=== PATIENT | female | born 1945 | race Caucasian/White ===

== ENCOUNTER 2016-09-13 02:19 | Inpatient (IN) ==
[2016-09-07 13:02] LABS: MANUAL DIFF NEEDED? NO; URINE MICRO REVIEW NEEDED? NO; URINE SOURCE CLEAN CATCH
[2016-09-07 13:14] LABS: BILIRUBIN URINE NEGATIVE (NEGATIVE); BLOOD URINE NEGATIVE (NEGATIVE); COLOR YELLOW; GLUCOSE URINE NEGATIVE (NEGATIVE); LEUKOCYTES URINE TRACE (NEGATIVE); NITRITE URINE NEGATIVE (NEGATIVE); PROTEIN URINE TRACE mg/dL (NEGATIVE); SP GRAVITY URINE 1.017; TURBIDITY URINE CLEAR (CLEAR); UROBILINOGEN URINE NORMAL (NORMAL)
[2016-09-07 13:16] LABS: BASO% 0.4 % (0.0-0.8); EOS# 0.32 X1000 (0.0-0.7); HEMATOCRIT 40.3 % (37.0-47.0); LYMPH# 2.41 X1000 (1.2-3.4); LYMPH% 30.2 % (20.5-51.1); MCH 29.7 PG (27-31); MCHC 32.3 g/dL (33-37); MCV 92.2 FL (81-99); MONO# 0.67 X1000 (0.11-0.59); MONO% 8.4 % (1.7-9.3); MPV 10.3 FL (7.4-10.4); PLT 183 X1000 (130-400); RBC 4.37 XMIL (4.2-5.4); UR EPITHELIAL CELLS <10 /HPF (<10); URINE BACTERIA NEGATIVE /HPF; URINE RBC <10 /HPF (<10); URINE WBC <10 /HPF (<10)
[2016-09-07 13:37] LABS: AGAP 11; BUN 15 mg/dL (8-22); CALCIUM 9.3 mg/dL (8.8-10.2); CHLORIDE 98 mmol/L (98-107); COSMO 289; POTASSIUM 3.9 mmol/L (3.5-5.1); SODIUM 144 mmol/L (136-145); TCO2 35 mmol/L (25-35)
[2016-09-07 13:43] LABS: PROTIME 10.2 Seconds (9.2-11.7); PTT 24.7 Seconds (22.0-36.0)
--- NOTE | 2016-09-07 14:24 | EKG Report ---
Test Performed on : 09/07/2016 12:56:04 PM Test Reason : PAT Blood Pressure : / mmHG Vent. Rate : 060 BPM Atrial Rate : 060 BPM P-R Int : 164 ms QRS Dur : 108 ms QT Int : 454 ms P-R-T Axes : 050 -24 024 degrees QTc Int : 454 ms Normal sinus rhythm. Incomplete right bundle branch block Moderate voltage criteria for LVH, may be normal variant Cannot rule out Septal infarct , age undetermined Abnormal ECG When compared with ECG of 11-DEC-2010 16:43, Minimal criteria for Septal infarct are now present Confirmed by Meliton JOEL, Jesus Simpson ([id number]) on 09/08/2016 9:29:12 AM
[2016-09-13] MEDS ORDERED: FLEXERIL PO PRN (07:01)
[2016-09-13] MEDS ORDERED: MINOCIN PO PRN (07:01)
[2016-09-13] MEDS ORDERED: COLACE ONE (07:37)
[2016-09-13] MEDS ORDERED: LYRICA ONE (07:37)
[2016-09-13] MEDS ORDERED: REGLAN ONE (07:37)
[2016-09-13] MEDS ORDERED: PEPCID ONE (07:37)
[2016-09-13] MEDS ORDERED: CELEBREX ONE (07:38)
[2016-09-13] MEDS ORDERED: LR 1,000 ML ONE ×2 (07:38)
[2016-09-13] MEDS ORDERED: KEFZOL 1 GM/D5W 50 ML ONE (07:38)
[2016-09-13] MEDS ORDERED: SODIUM CHLORIDE 0.9% ONE (08:56)
[2016-09-13] MEDS ORDERED: VANCOMYCIN ONE (08:56)
[2016-09-13] MEDS ORDERED: MARCAINE 0.25% PF/EPI 1:200,000 ONE (08:56)
[2016-09-13] MEDS ORDERED: DURAMORPH ONE (08:56)
[2016-09-13] MEDS ORDERED: TORADOL ONE (08:56)
[2016-09-13] MEDS ORDERED: CYKLOKAPRON 1,000 MG/NS 100 ML ONE ×2 (08:57→10:39)
[2016-09-13] MEDS ORDERED: CLAVE SECONDARY SET 11953 ONE (08:57)
[2016-09-13] MEDS ORDERED: EXPAREL 1.3% ONE (08:57)
[2016-09-13] MEDS ORDERED: NEOSPORIN G.U. IRRIGANT ONE (08:57)
[2016-09-13] MEDS ORDERED: METOPROLOL PO SCH (09:00)
[2016-09-13] MEDS ORDERED: NEURONTIN PO SCH ×2 (09:00→21:00)
[2016-09-13] MEDS ORDERED: HYDROCHLOROTHIAZIDE PO SCH (09:00)
[2016-09-13] MEDS ORDERED: [UNRECOGNIZED DRUG - OTHER] PO SCH (09:00)
--- NOTE | 2016-09-13 09:39 | HISTORY AND PHYSICAL ---
CHIEF COMPLAINT: Right knee pain. HISTORY OF PRESENT ILLNESS: Ms. Rahman is a 70-year-old, white female with a history of right knee pain for several years now. It has progressively gotten worse. On radiographic image, it shows that she has advanced degenerative joint disease. She is being admitted to the hospital today for a right total knee arthroplasty. PAST MEDICAL HISTORY: Neuropathy, hypertension, mitral valve prolapse, hyperlipidemia, ulcerative colitis, and osteoarthritis. SURGICAL HISTORY: Bilateral tubal ligation, total vaginal hysterectomy, breast reduction, lumbar fusion, laminectomy, anterior cervical disk fusion, cataract surgery, mandible surgery. FAMILY HISTORY: Noncontributory. SOCIAL HISTORY: She is . She denies using tobacco, denies using alcohol. HOME MEDICATION LIST: Wellbutrin 300 mg p.o. daily, Pepcid 40 mg p.o. b.i.d., estradiol 1 mg p.o. daily, Cymbalta 30 mg p.o. daily, Topamax 200 mg p.o. at bedtime, Pravachol 20 mg p.o. at bedtime, Colazal 1500 mg p.o. b.i.d., MS Contin 15 mg p.o. q.12 hours p.r.n., gabapentin 300 mg p.o. b.i.d., magnesium oxide 800 mg p.o. daily, minocycline 50 mg p.o. p.r.n., Flexeril 10 mg p.o. at bedtime, aspirin 81 mg p.o. daily, Aricept 10 mg p.o. at bedtime, MiraLAX 17 g p.o. daily, losartan/hydrochlorothiazide 100/25 mg tablet 1 p.o. daily, metoprolol/hydrochlorothiazide 100/25 mg tablet 1 p.o. b.i.d., Linzess 145 mcg p.o. daily, oxycodone/acetaminophen 10/325 one p.o. q.8 hours p.r.n., Centrum Silver 1 p.o. daily, gabapentin 300 mg capsule 2 capsules p.o. at bedtime. ALLERGIES: No known drug allergies. PRIMARY CARE PROVIDER: Dr. Leida Carrizales. REVIEW OF SYSTEMS: HEENT: Reading glasses. She has had cataract surgery in the past. Cardiac: Patient reports having mitral valve prolapse but denies any other heart history. Denies any chest pain, shortness of breath, or syncope. Pulmonary: Patient denies any wheezing, coughing, hemoptysis, or any chronic lung disease. Gastrointestinal: Patient reports having ulcerative colitis. Denies any current nausea, vomiting, diarrhea, or constipation. Genitourinary: The patient denies any bladder or urinary tract problems. Neurological: Patient reports having numbness and tingling of her hands and feet. Musculoskeletal: Patient reports right knee pain. PHYSICAL EXAMINATION: GENERAL: The patient is awake, sitting up in bed. She is articulate and able to answer questions appropriately. HEENT: Head is normocephalic, atraumatic. Pupils equal, round, react to light. Nares patent. Throat without any exudate. CARDIAC: S1 and S2 auscultated. No murmur, rub or gallop noted. LUNGS: Clear to auscultation bilaterally in all lung cedeño. ABDOMEN: Soft, nontender, nondistended. Bowel sounds present all quadrants. GENITOURINARY: Not examined. NEUROLOGICAL: The patient has good sensation to dull touch in all extremities. Cranial nerves 2- 12 grossly intact. MUSCULOSKELETAL: Physical examination of the right knee reveals pain with palpation and passive range of motion. IMPRESSION: Osteoarthritis of the right knee. PLAN: Right total knee arthroplasty. The risks, benefits, and alternatives of the surgery were discussed with the patient including the risks of anesthesia, bleeding, damage to blood vessels, nerves, tendons, ligaments, and other imponderables. The patient agrees to proceed with surgery at this time. Dictated by MANSI Pruitt for Casa Álvarez MD
[2016-09-13] MEDS ORDERED: FENTANYL ONE (11:12)
[2016-09-13] MEDS ORDERED: DIPRIVAN 1% 50 ML ONE (11:12)
--- NOTE | 2016-09-13 11:18 | OPERATIVE NOTE ---
PROCEDURE DATE: 09/13/2016 PREOPERATIVE DIAGNOSIS: Degenerative joint disease, right knee. POSTOPERATIVE DIAGNOSIS: Degenerative joint disease, right knee. PROCEDURE PERFORMED: Right total knee replacement. SURGEON: Franny Álvarez MD. CONTACT CENTER ENGINEER: ERIBERTO Caro. ANESTHESIA: Spinal. COMPLICATIONS: None. PROCEDURE IN DETAIL: This 70-year-old female presents for end-stage DJD about the right knee. Risks, benefits, and no guarantees were discussed, and she is willing to proceed. She was taken to the operating room and satisfactory anesthesia obtained. The right knee was prepped and draped in the usual sterile fashion. A time-out was taken to confirm operative site, procedure, and patient. The leg was wrapped with an Esmarch and tourniquet inflated to 350 mmHg. A midline incision was made, followed by a quadriceps tendon sparing arthrotomy. The patella was everted and resurfaced with freehand technique, and sized to a 31 medialized dome patella. The patella was subluxed laterally and the knee flexed. An intramedullary hole was made in the distal femur and the distal femoral cutting block secured in 5 degrees of valgus. Distal femoral resection was then made and the femur sized to a DePuy Attune size 4 femoral component. The 4 in 1 block was secured. The anterior, posterior, and chamfer cuts were sequentially made. Care was taken to preserve the PCL. Any osteophytes were debrided about the femur. The knee was flexed and a PCL retractor placed behind the tibia to protect the PCL and neurovascular bundle. The tibial cutting block was positioned with an extramedullary alignment guide and tibial resection made. Flexion and extension gaps were noted to be slightly tight medially and a medial resection was released with good soft tissue balance. The tibia was sized to a size 3 tibial tray. Trial reduction was performed with a 6 mm poly with good range of motion and stability of the knee and patella. The trial implants were removed. The bony surfaces were thoroughly irrigated with pulsatile lavage. Cement with a gram of vancomycin was then utilized to cement a DePuy Attune size 3 tibial tray, a size 4 right cruciate-retaining femoral component, and a 32 medialized dome patella. While the cement cured, excess cement was removed with a [place] elevator. The joint capsule was injected with Exparel for pain management and a Hemovac drain placed. After curing of the cement, a 6 mm thick, size 4 rotating platform poly was inserted in the tibial tray and the knee reduced. Final range of motion was assessed from 0-120 degrees with midline patellar tracking. The knee was then copiously irrigated with irrigant. It was then closed over the drain with #1 Vicryl in the arthrotomy, 2-0 Vicryl in the subcutaneous, and skin david on the skin edges. Sterile dressings completed the closure. The patient was recovered from anesthesia and transferred to the recovery room in stable condition. No intraoperative complications were noted. Instrument count and sponge count were correct at the time of closure.
[2016-09-13] MEDS ORDERED: ZOFRAN ONE ×2 (11:19→12:10)
[2016-09-13] MEDS ORDERED: EPHEDRINE ONE (11:20)
[2016-09-13] MEDS ORDERED: XYLOCAINE-MPF 2% ONE (11:20)
[2016-09-13] MEDS ORDERED: DECADRON ONE (11:20)
[2016-09-13] MEDS ORDERED: OFIRMEV 1000 MG/ISOTONIC SOLN 100 ML ONE (11:20)
[2016-09-13] MEDS ORDERED: NS 1,000 ML ONE (11:24)
--- NOTE | 2016-09-13 13:31 | Diag Imaging Result Document ---
PROCEDURE NAME: KNEE 1-2 VIEWS-RIGHT - 09/13/2016 PLAIN RADIOGRAPH OF THE RIGHT KNEE, 2 VIEWS: COMPARISON: 01/07/2013. FINDINGS: There has been a recent right knee arthroplasty. The arthroplasty hardware is in the expected position. There is no evidence of periprosthetic fracture. Anterior skin david and a drainage catheter are in place. IMPRESSION: Satisfactory postoperative knee.
[2016-09-13] MEDS: MS CONTIN PO PRN ×2 (13:42→23:33)
[2016-09-13] MEDS: CELEBREX PO SCH (14:52)
[2016-09-13] MEDS: CENTRUM SILVER PO SCH (14:52)
[2016-09-13] MEDS: PEPCID PO SCH ×2 (14:53→20:53)
[2016-09-13] MEDS: COLACE PO SCH ×2 (14:53→20:54)
[2016-09-13] MEDS: COLAZAL PO SCH ×2 (14:54→20:54)
[2016-09-13] MEDS: MIRALAX PO SCH (14:54)
[2016-09-13] MEDS: CYMBALTA PO SCH (14:54)
[2016-09-13] MEDS: LINZESS PO SCH (14:55)
[2016-09-13] MEDS: WELLBUTRIN XL PO SCH (14:57)
[2016-09-13] MEDS: NS 1,000 ML IV SCH ×2 (15:01→20:51)
[2016-09-13] MEDS: ASPIRIN PO SCH (15:01)
[2016-09-13] MEDS: NEURONTIN PO SCH (15:01)
[2016-09-13] MEDS: ESTRACE PO SCH (15:01)
[2016-09-13] MEDS: MAG-OX PO SCH (15:03)
[2016-09-13] MEDS: HYZAAR 50/12.5 MG PO SCH (15:03)
[2016-09-13] MEDS: PERCOCET-10 PO PRN ×2 (16:37→20:51)
[2016-09-13] MEDS: KEFZOL 1 GM/D5W 50 ML IV SCH (16:38)
[2016-09-13] MEDS: PERIDEX MT SCH (20:52)
[2016-09-13] MEDS: LOPRESSOR PO SCH (20:54)
[2016-09-13] MEDS: HYDROCHLOROTHIAZIDE PO SCH (20:54)
[2016-09-13] MEDS ORDERED: ARICEPT PO SCH (21:00)
[2016-09-13] MEDS ORDERED: PRAVACHOL PO SCH (21:00)
[2016-09-13] MEDS ORDERED: TOPAMAX PO SCH (21:00)
[2016-09-14] MEDS: KEFZOL 1 GM/D5W 50 ML IV SCH (01:05)
[2016-09-14] MEDS: PERCOCET-10 PO PRN ×4 (01:06→12:17)
[2016-09-14] MEDS: NS 1,000 ML IV SCH (03:16)
[2016-09-14] MEDS ORDERED: XARELTO PO SCH (06:00)
[2016-09-14 06:10] LABS: HEMATOCRIT 34.5 % (37.0-47.0); HEMOGLOBIN 11.5 g/dL (12.0-16.0)
[2016-09-14] MEDS: NEURONTIN PO SCH (06:38)
[2016-09-14 06:39] LABS: AGAP 11; BUN 9 mg/dL (8-22); CALCIUM 8.7 mg/dL (8.8-10.2); CHLORIDE 101 mmol/L (98-107); COSMO 278; POTASSIUM 3.3 mmol/L (3.5-5.1); SODIUM 139 mmol/L (136-145); TCO2 27 mmol/L (25-35)
[2016-09-14 08:00] VITALS: BP 161/52
[2016-09-14] MEDS: WELLBUTRIN XL PO SCH (09:23)
[2016-09-14] MEDS: COLAZAL PO SCH (09:23)
[2016-09-14] MEDS: CELEBREX PO SCH (09:23)
[2016-09-14] MEDS: PERIDEX MT SCH (09:23)
[2016-09-14] MEDS: LINZESS PO SCH (09:23)
[2016-09-14] MEDS: COLACE PO SCH (09:24)
[2016-09-14] MEDS: CYMBALTA PO SCH (09:24)
[2016-09-14] MEDS: HYZAAR 50/12.5 MG PO SCH (09:24)
[2016-09-14] MEDS: MIRALAX PO SCH ×2 (09:24→09:32)
[2016-09-14] MEDS: PEPCID PO SCH (09:24)
[2016-09-14] MEDS: MAG-OX PO SCH (09:24)
[2016-09-14] MEDS: ESTRACE PO SCH (09:25)
[2016-09-14] MEDS: LOPRESSOR PO SCH (09:25)
[2016-09-14] MEDS: HYDROCHLOROTHIAZIDE PO SCH (09:25)
[2016-09-14] MEDS: ASPIRIN PO SCH (09:25)
[2016-09-14] MEDS: CENTRUM SILVER PO SCH (09:25)
[2016-09-14] MEDS: MS CONTIN PO PRN (10:46)
== END 2016-09-14 12:48 | disposition home or self-care (01) | DRG 470 ==
LOC: SURHOLD 02:19 → 4N 11:12
PROVIDERS: ADMIT Orthopaedic Surgery Adult Reconstructive Orthopaedic Surgery; ATTEND Orthopaedic Surgery Adult Reconstructive Orthopaedic Surgery
PROC: 0SRC0J9 Replacement of Right Knee Joint with Synthetic Substitute, Cemented, Open Approach (ICD-10-PCS; principal; 2016-09-13 09:17)
DX: M17.11 Unilateral primary osteoarthritis, right knee (principal); K51.90 Ulcerative colitis, unspecified, without complications; I10 Essential (primary) hypertension; Z98.1 Arthrodesis status; G62.9 Polyneuropathy, unspecified; I34.1 Nonrheumatic mitral (valve) prolapse; E78.5 Hyperlipidemia, unspecified; L71.9 Rosacea, unspecified; Z79.82 Long term (current) use of aspirin; Z79.890 Hormone replacement therapy; Z79.899 Other long term (current) drug therapy
CPT/HCPCS: 73560; 80048; 81001; 85014; 85018; 85025; 85610; 85730; 86850; 86900; 86901; 88305; 88311; 93005; 93010; 94761; 94799; C9290; J0131; J0690; J1100; J1885; J2274; J2405; J3010; J3370; J7030; J7120; 97530-GP